=== PATIENT | male | born 1955 | race Caucasian/White ===

== ENCOUNTER 2018-08-25 09:07 | Emergency (ER) | payer OTHER ==
[2018-08-25 09:14] VITALS: BP 105/55; PULSE 95; TEMP 100.7; BMI 27.3
[2018-08-25] MEDS ORDERED: IBUPROFEN 600 MG TABLET (FP) PO ONE ×2 (09:32→09:46)
--- NOTE | 2018-08-25 09:59 | PDOC ---
History of Present Illness - General Chief Complaint: Respiratory Stated Complaint: COUGH AND FEVER Time Seen by Provider: 08/25/18 09:18 History Source: Patient Exam Limitations: No Limitations Past History - Past Medical History Allergies/Adverse Reactions: Allergies Allergy/AdvReac Type Severity Reaction Status Date / Time No Known Allergies Allergy Verified 08/25/18 09:12 Home Medications: Ambulatory Orders Aspirin [ASA -] 81 mg PO DAILY 04/26/16 Omeprazole [Prilosec] 40 mg PO DAILY 04/26/16 Rosuvastatin Calcium [Crestor] 10 mg PO DAILY 04/26/16 Acetaminophen [Tylenol] 325 mg PO QID PRN 08/25/18 Oseltamivir Phosphate [Tamiflu] 75 mg PO BID #10 capsule 08/25/18 HTN: Yes Hypercholesterolemia: Yes - Suicide/Smoking/Psychosocial Hx Smoking Status: No Smoking History: Unknown if ever smoked Number of Cigarettes Smoked Daily: 0 Hx Alcohol Use: No Drug/Substance Use Hx: No Substance Use Type: None Hx Substance Use Treatment: No *Physical Exam - Vital Signs Last Vital Signs Temp Pulse Resp BP Pulse Ox 100.7 F H 95 H 18 105/55 L 95 08/25/18 09:13 08/25/18 09:13 08/25/18 09:13 08/25/18 09:13 08/25/18 09:13 - Physical Exam General Appearance: No: Apparent Distress HEENT: positive: Pharynx Normal. negative: Muffled/Hoarse voice, Pharyngeal Erythema, Tonsillar Exudate, Nasal Congestion, Rhinorrhea, Sinus Tenderness Respiratory/Chest: positive: Lungs Clear, Normal Breath Sounds. negative: Respiratory Distress Cardiovascular: positive: Regular Rhythm, Regular Rate, S1, S2. negative: Murmur Gastrointestinal/Abdominal: positive: Normal Bowel Sounds, Soft. negative: Tender, Distended, Guarding, Rebound Integumentary: positive: Normal Color Neurologic: positive: Fully Oriented, Alert, Normal Mood/Affect Moderate Sedation - Procedure Monitoring Vital Signs: Procedure Monitoring Vital Signs Temperature 100.7 F H 08/25/18 09:13 Pulse Rate 95 H 08/25/18 09:13 Respiratory Rate 18 08/25/18 09:13 Blood Pressure 105/55 L 08/25/18 09:13 O2 Sat by Pulse Oximetry (%) 95 08/25/18 09:13 ED Treatment Course - RADIOLOGY Radiology Studies Ordered: Category Date Time Status CHEST PA & LAT [RAD] Stat Radiology 08/25/18 09:32 Taken - Medications Given in the ED: ED Medications Discontinued Medications Generic Name Dose Route Start Last Admin Trade Name Lauren PRN Reason Stop Dose Admin Ibuprofen 600 mg 08/25/18 09:32 08/25/18 09:46 Motrin - PO 08/25/18 09:33 600 mg ONCE ONE Administration Medical Decision Making - Medical Decision Making 62 y/o M hx of HLD, pre-DM presents with URI sxs x 2 days. Mentions around 2 weeks ago, he was having cold sxs for which his PCP prescribed Azithromycin, after which he felt a lot better, but then feeling feverish 2 days ago along with watery eyes, rhinorrhea, nasal congestion, productive cough with white phlegm. Also had some watery diarrhea yesterday, but not having now. Has some mild CP, but it is only with coughing. Denies sob, abd pain, n/v. Patient had taken 2 Tylenol around an hour before coming to ED Consider viral URI/influenza vs PNA Will get flu swab and CXR; Motrin for fever 08/25/18 09:52 CXR neg for PNA Patient found to be flu positive Given within 48 hours time frame, will treat for flu Otherwise, well appearing, stable for dc 08/25/18 10:10 *DC/Admit/Observation/Transfer Diagnosis at time of Disposition: Influenza A - Discharge Dispostion Disposition: HOME Condition at time of disposition: Stable Decision to Admit order: No - Prescriptions Prescriptions: Oseltamivir Phosphate [Tamiflu] 75 mg PO BID #10 capsule - Referrals - Patient Instructions Printed Discharge Instructions: DI for H1N1 Influenza -- Adult Additional Instructions: Thank you for choosing [facility]. It was a pleasure taking care of you. You were found to have the flu. Please take the Tamiflu as directed This condition can spread with cough. Cover your mouth and wash hands Drink plenty of fluids to stay hydrated - at least 2L a day Follow-up with your PCP in 3 days Return to the Emergency Department if your symptoms worsen or persist or have other concerning symptoms. - Post Discharge Activity
[2018-08-25] MEDS ORDERED: OSELTAMIVIR PHOSPHATE 75 MG CAPSULE PO ONE (10:09)
[2018-08-25] MEDS ORDERED: OSELTAMIVIR PHOSPHATE 75 MG CAPSULE ONE (10:21)
== END 2018-08-25 10:48 | disposition home or self-care (01) ==
LOC: JER 09:07
DX: J09.X2 Influenza due to identified novel influenza A virus with other respiratory manifestations (principal); R73.03 Prediabetes; E78.5 Hyperlipidemia, unspecified
CPT/HCPCS: 71046-TC-FY; 87804; 99281-25

== ENCOUNTER 2022-01-01 14:27 | Emergency (ER) | payer OTHER ==
[2022-01-01 15:04] VITALS: BP 119/80; PULSE 108; TEMP 98.1; BMI 26.6
[2022-01-01] MEDS ORDERED: DEXAMETHASONE SOD PHOSPHATE 10 MG/1 ML VIAL IM ONE (15:39)
[2022-01-01] MEDS ORDERED: DEXAMETHASONE SOD PHOSPHATE 10 MG/1 ML VIAL ONE (15:42)
== END 2022-01-01 16:30 | disposition home or self-care (01) ==
LOC: JERFT 14:27
PROC: 3E023GC Introduction of Other Therapeutic Substance into Muscle, Percutaneous Approach (ICD-10-PCS; principal; 2022-01-01)
DX: L50.9 Urticaria, unspecified (principal)
CPT/HCPCS: 96372; 99284-25; J1100